=== PATIENT | male | born 1965 | race Caucasian/White ===

== ENCOUNTER 2017-06-23 08:07 | Day surgery (SDC) | payer OTHER ==
[~2017-06-23] VITALS: Ht 195.6 cm; Wt 141.5 kg
[~2017-06-23 08:07] MED LIST: ALBU90OI INH; AMLO5 PO; ASPI81CH PO; Advair Hfa 115-12 GM INH; CHLO25B PO; ESOM20 PO; FLUSAL1005 INH; LISHYD2025 PO; LISI20 PO; TRAM50 PO; [UNRECOGNIZED DRUG - OTHER]
[2017-09-11] MEDS ORDERED: ACET325 PO (15:19)
[2017-09-11] MEDS ORDERED: Amiodarone HCl200 MG PO (15:20)
[2017-09-11] MEDS ORDERED: ELIQUIS5 MG PO (15:21)
[2017-09-11] MEDS ORDERED: GERI-HYDROLAC222 M1 TP (15:21)
[2017-09-11] MEDS ORDERED: ASCO500 PO (15:22)
[2017-09-11] MEDS ORDERED: LISI20 PO (15:25)
[2017-09-11] MEDS ORDERED: FAMO20 PO (15:25)
[2017-09-11] MEDS ORDERED: Advair Hfa 230-12 GM (15:26)
[2017-09-11] MEDS ORDERED: LOPE2C PO (15:26)
[2017-09-11] MEDS ORDERED: METO100ER PO (15:27)
[2017-09-11] MEDS ORDERED: TRAZ50 PO (15:27)
[2017-09-12] MEDS ORDERED: Augmentin 875-1 EACH PO (14:58)
[2017-09-12] MEDS ORDERED: SACC250C PO (14:58)
[2018-02-03] MEDS ORDERED: ALBU90OI61 INH (17:52)
== END 2017-06-23 22:56 | disposition home or self-care (01) ==
LOC: ORSCMMR 08:07
PROVIDERS: Surgery
PROC: 0WUF0JZ Supplement Abdominal Wall with Synthetic Substitute, Open Approach (ICD-10-PCS; principal; 2017-06-23 09:45)
DX: K43.2 Incisional hernia without obstruction or gangrene (principal); I10 Essential (primary) hypertension; J45.909 Unspecified asthma, uncomplicated; K21.9 Gastro-esophageal reflux disease without esophagitis; E66.01 Morbid (severe) obesity due to excess calories; Z68.37 Body mass index [BMI] 37.0-37.9, adult; Z87.891 Personal history of nicotine dependence; Z79.899 Other long term (current) drug therapy
CPT/HCPCS: C1781; J0690; J1100; J1885; J2250; J2270; J2405; J2710; J3010; J7120

== ENCOUNTER 2017-06-28 22:59 | Inpatient (IN) | payer OTHER ==
[~2017-06-28] VITALS: Ht 193 cm; Wt 154.1 kg
[2017-06-28 23:49] LABS: BASOPHILS ABSOLUTE AUTO 0.03 K/mm3 (0.00-0.23); BASOPHILS PERCENT AUTO 0 % (0-2); Hemoglobin 12.8 g/dL (13.5-17.5); LYMPHOCYTES ABSOLUTE AUTO 0.87 K/mm3 (0.84-5.20); LYMPHOCYTES PERCENT AUTO 6 % (21-46); MONOCYTES ABSOLUTE AUTO 1.67 K/mm3 (0.16-1.47); MONOCYTES PERCENT AUTO 11 % (4-13); Mean Corpuscular HGB Conc 34.6 g/dL (31.5-36.5); Mean Corpuscular Volume 93 fL (80-100); Mean Platelet Volume 11.8 fL (9.1-12.4); Platelet Count 268 K/mm3 (150-400); RDW Coefficient Variation 12.5 % (11.7-14.2); RDW Standard Deviation 42.7 fL (35.1-46.3)
[2017-06-28 23:52] LABS: EOSINOPHILS PERCENT AUTO 0 % (0-6); IMMATURE GRAN ABSOLUTE AUTO 0.06 K/mm3 (0.00-0.10); IMMATURE GRAN PERCENT AUTO 0 % (0-1); NEUTROPHILS ABSOLUTE AUTO 12.17 K/mm3 (1.96-9.15); NEUTROPHILS PERCENT AUTO 82 % (41-73)
[2017-06-29 00:08] LABS: Albumin, Blood 3.1 g/dL (3.4-5.0); Albumin/Globulin Ratio 0.6 (0.8-1.8); Bun/Creatinine Ratio 12.7 (12.0-20.0); Calcium, Blood 8.9 mg/dL (8.5-10.1); Creatinine, Blood 4.72 mg/dL (0.60-1.20); Globulin, Blood 5.2 g/dL (2.2-4.0); Potassium, Blood 4.3 mmol/L (3.5-5.5); Total Protein, Blood 8.3 g/dL (6.4-8.2)
[2017-06-29] MEDS ORDERED: OXYC10TA19 (00:19)
[2017-06-29] MEDS ORDERED: CYCL10 PO (00:19)
[2017-06-29 03:29] LABS: Source, Urine Catheter
[2017-06-29 03:31] LABS: Appearance, Urine Hazy (Clear); Blood, Urine 2+ (Neg); Color, Urine Amber (P-Yellow); Glucose Qualitative, Urine Neg (Neg); Ketones, Urine 1+ (Neg); Leukocyte Esterase, Urine 1+ (Neg); Nitrite, Urine Neg (Neg); Protein, Urine 2+ (Neg); Urobilinogen, Urine 1+ (Normal)
[2017-06-29 03:36] LABS: Bilirubin, Urine 2+ (Neg)
[2017-06-29 03:37] LABS: Amorphous Mod (0-Heavy); Bacteria Many /hpf; Red Blood Cells, Urine 0-2 /hpf (0-2); Squamous Epithelial Cells Not Seen /hpf (Few)
[2017-06-29 04:56] LABS: BASOPHILS ABSOLUTE AUTO 0.02 K/mm3 (0.00-0.23); BASOPHILS PERCENT AUTO 0 % (0-2); Hematocrit 28.5 % (37.0-53.0); Hemoglobin 9.6 g/dL (13.5-17.5); LYMPHOCYTES ABSOLUTE AUTO 0.83 K/mm3 (0.84-5.20); LYMPHOCYTES PERCENT AUTO 7 % (21-46); MONOCYTES ABSOLUTE AUTO 2.25 K/mm3 (0.16-1.47); MONOCYTES PERCENT AUTO 18 % (4-13); Mean Corpuscular HGB 31.6 pg (26.0-34.0); Mean Corpuscular HGB Conc 33.7 g/dL (31.5-36.5); Mean Corpuscular Volume 94 fL (80-100); Platelet Count 223 K/mm3 (150-400); RDW Coefficient Variation 12.6 % (11.7-14.2); RDW Standard Deviation 43.6 fL (35.1-46.3); Red Blood Cell Count 3.04 M/mm3 (4.30-5.90); White Blood Cell Count 12.53 K/mm3 (4.00-11.30)
[2017-06-29 04:59] LABS: EOSINOPHILS PERCENT AUTO 0 % (0-6); IMMATURE GRAN ABSOLUTE AUTO 0.08 K/mm3 (0.00-0.10); IMMATURE GRAN PERCENT AUTO 1 % (0-1); NEUTROPHILS ABSOLUTE AUTO 9.35 K/mm3 (1.96-9.15); NEUTROPHILS PERCENT AUTO 75 % (41-73)
[2017-06-29 05:09] LABS: Albumin, Blood 2.4 g/dL (3.4-5.0); Albumin/Globulin Ratio 0.6 (0.8-1.8); Bilirubin, Total 1.6 mg/dL (0.1-1.0); Bun/Creatinine Ratio 12.8 (12.0-20.0); Calcium, Blood 7.5 mg/dL (8.5-10.1); Creatinine, Blood 4.94 mg/dL (0.60-1.20); Potassium, Blood 3.7 mmol/L (3.5-5.5); Total Protein, Blood 6.4 g/dL (6.4-8.2)
[2017-06-29 10:16] LABS: PCO2 Arterial 50.7 mmHg (35-45); PO2 Arterial 237 mmHg (80-100); pH Blood Arterial 7.29 (7.35-7.45)
[2017-06-29 12:32] LABS: PO2 Arterial 67.6 mmHg (80-100)
[2017-06-29 12:33] LABS: pH Blood Arterial 7.29 (7.35-7.45)
[2017-06-29 13:40] LABS: BASOPHILS ABSOLUTE AUTO 0.02 K/mm3 (0.00-0.23); BASOPHILS PERCENT AUTO 0 % (0-2); Hematocrit 32.3 % (37.0-53.0); Hemoglobin 10.8 g/dL (13.5-17.5); LYMPHOCYTES ABSOLUTE AUTO 0.59 K/mm3 (0.84-5.20); LYMPHOCYTES PERCENT AUTO 10 % (21-46); MONOCYTES ABSOLUTE AUTO 0.96 K/mm3 (0.16-1.47); MONOCYTES PERCENT AUTO 17 % (4-13); Mean Corpuscular HGB 31.2 pg (26.0-34.0); Mean Corpuscular HGB Conc 33.4 g/dL (31.5-36.5); Mean Corpuscular Volume 93 fL (80-100); Mean Platelet Volume 11.4 fL (9.1-12.4); Platelet Count 223 K/mm3 (150-400); RDW Coefficient Variation 13.2 % (11.7-14.2); RDW Standard Deviation 45.1 fL (35.1-46.3); Red Blood Cell Count 3.46 M/mm3 (4.30-5.90)
[2017-06-29 13:41] LABS: EOSINOPHILS PERCENT AUTO 0 % (0-6); IMMATURE GRAN ABSOLUTE AUTO 0.02 K/mm3 (0.00-0.10); IMMATURE GRAN PERCENT AUTO 0 % (0-1); NEUTROPHILS ABSOLUTE AUTO 4.21 K/mm3 (1.96-9.15); NEUTROPHILS PERCENT AUTO 73 % (41-73)
[2017-06-29 13:55] LABS: International Normalized Ratio 1.13; Prothrombin Time Results 11.8 Sec (9.7-11.5)
[2017-06-29 14:02] LABS: Albumin/Globulin Ratio 0.5 (0.8-1.8); Bun/Creatinine Ratio 16.1 (12.0-20.0); Calcium, Blood 7.2 mg/dL (8.5-10.1); Creatinine, Blood 4.23 mg/dL (0.60-1.20); Globulin, Blood 3.7 g/dL (2.2-4.0); Magnesium, Blood 1.9 mg/dL (1.6-2.4); Phosphorus, Blood 5.5 mg/dL (2.5-4.9); Total Protein, Blood 5.7 g/dL (6.4-8.2)
[2017-06-29 20:19] LABS: Hematocrit 30.8 % (37.0-53.0); Hemoglobin 10.5 g/dL (13.5-17.5)
[2017-06-29 20:40] LABS: Magnesium, Blood 2.1 mg/dL (1.6-2.4); Phosphorus, Blood 3.6 mg/dL (2.5-4.9); Troponin I 0.092 ng/mL (0.000-0.040)
[2017-06-29 20:54] LABS: Creatine Kinase MB 3.7 ng/mL (0.0-3.6)
[2017-06-30 04:17] LABS: PCO2 Arterial 32.7 mmHg (35-45); PO2 Arterial 79.9 mmHg (80-100); pH Blood Arterial 7.46 (7.35-7.45)
[2017-06-30 04:18] LABS: BASOPHILS ABSOLUTE AUTO 0.02 K/mm3 (0.00-0.23); BASOPHILS PERCENT AUTO 0 % (0-2); EOSINOPHILS ABSOLUTE AUTO 0.04 K/mm3 (0.00-0.68); EOSINOPHILS PERCENT AUTO 1 % (0-6); Hematocrit 29.2 % (37.0-53.0); Hemoglobin 10.1 g/dL (13.5-17.5); IMMATURE GRAN ABSOLUTE AUTO 0.05 K/mm3 (0.00-0.10); IMMATURE GRAN PERCENT AUTO 1 % (0-1); LYMPHOCYTES ABSOLUTE AUTO 0.73 K/mm3 (0.84-5.20); LYMPHOCYTES PERCENT AUTO 11 % (21-46); MONOCYTES PERCENT AUTO 24 % (4-13); Mean Corpuscular HGB 31.6 pg (26.0-34.0); Mean Corpuscular HGB Conc 34.6 g/dL (31.5-36.5); Mean Corpuscular Volume 91 fL (80-100); Mean Platelet Volume 11.3 fL (9.1-12.4); NEUTROPHILS ABSOLUTE AUTO 4.28 K/mm3 (1.96-9.15); NEUTROPHILS PERCENT AUTO 64 % (41-73); NRBC ABSOLUTE 0.02 K/mm3 (0.00-0.02); NRBC Auto 0.3 /100 WBC (0.0-0.2); Platelet Count 236 K/mm3 (150-400); RDW Coefficient Variation 13.3 % (11.7-14.2); RDW Standard Deviation 44.9 fL (35.1-46.3); White Blood Cell Count 6.72 K/mm3 (4.00-11.30)
[2017-06-30 04:41] LABS: Bun/Creatinine Ratio 22.1 (12.0-20.0); Calcium, Blood 7.7 mg/dL (8.5-10.1); Creatinine, Blood 2.99 mg/dL (0.60-1.20); Free Thyroxine 1.24 ng/dL (0.70-1.60); Magnesium, Blood 2.4 mg/dL (1.6-2.4); Phosphorus, Blood 2.8 mg/dL (2.5-4.9); Potassium, Blood 3.5 mmol/L (3.5-5.5); Troponin I 0.077 ng/mL (0.000-0.040)
[2017-06-30 04:44] LABS: Thyroid Stimulating Hormone 0.27 uIU/mL (0.360-4.800)
[2017-07-01 04:33] LABS: Hematocrit 26.1 % (37.0-53.0); Mean Corpuscular HGB 31.7 pg (26.0-34.0); Mean Corpuscular HGB Conc 34.5 g/dL (31.5-36.5); Mean Corpuscular Volume 92 fL (80-100); Mean Platelet Volume 11.2 fL (9.1-12.4); Platelet Count 259 K/mm3 (150-400); RDW Coefficient Variation 13.3 % (11.7-14.2); Red Blood Cell Count 2.84 M/mm3 (4.30-5.90); White Blood Cell Count 9.47 K/mm3 (4.00-11.30)
[2017-07-01 04:46] LABS: International Normalized Ratio 1.08; Prothrombin Time Results 11.3 Sec (9.7-11.5)
[2017-07-01 04:53] LABS: Alanine Aminotransfer (ALT/SGP 37 U/L (12-78); Albumin, Blood 1.5 g/dL (3.4-5.0); Albumin/Globulin Ratio 0.4 (0.8-1.8); Alk Phos 33 U/L (50-136); Anion Gap 8 mmol/L (6-16); Aspartate Aminotrans (AST/SGOT 39 U/L (12-37); Bilirubin, Total 1.2 mg/dL (0.1-1.0); Blood Urea Nitrogen 52 mg/dL (8-24); Bun/Creatinine Ratio 32.3 (12.0-20.0); CO2, Blood 26 mmol/L (21-32); Calcium, Blood 7.2 mg/dL (8.5-10.1); Chloride, Blood 101 mmol/L (98-108); Creatinine, Blood 1.61 mg/dL (0.60-1.20); Globulin, Blood 3.9 g/dL (2.2-4.0); Glomerular Filtration Rate 48 (60-); Glucose, Blood 148 mg/dL (70-99); Magnesium, Blood 2.6 mg/dL (1.6-2.4); Phosphorus, Blood 1.8 mg/dL (2.5-4.9); Potassium, Blood 3.1 mmol/L (3.5-5.5); Sodium, Blood 135 mmol/L (136-145); Total Protein, Blood 5.4 g/dL (6.4-8.2); Triglycerides 784 mg/dL (30-160)
[2017-07-01 05:11] LABS: PCO2 Arterial 34.7 mmHg (35-45); PO2 Arterial 74.1 mmHg (80-100)
[2017-07-01 05:50] LABS: BAND PERCENT MAN 11 % (0-8); BASOPHILS PERCENT MAN 0 % (0-2); EOSINOPHILS ABSOLUTE MAN 0.47 K/mm3 (0.00-0.68); EOSINOPHILS PERCENT MAN 5 % (0-6); LYMPHOCYTES ABSOLUTE MAN 0.66 K/mm3 (0.84-5.20); LYMPHOCYTES PERCENT MAN 7 % (21-46); METAMYELOCYTE ABSOLUTE MAN 0.37 K/mm3 (0.00-0.00); METAMYELOCYTE PERCENT MAN 4 % (0-0); MONOCYTES ABSOLUTE MAN 0.94 K/mm3 (0.16-1.47); MONOCYTES PERCENT MAN 10 % (4-13); MYELOCYTE ABSOLUTE MAN 0.09 K/mm3 (0.00-0.00); MYELOCYTE PERCENT MAN 1 % (0-0); NEUTROPHILS ABSOLUTE MAN 6.91 K/mm3 (1.96-9.15); SEG NEUTROPHILS PERCENT MAN 62 % (41-73); TOTAL CELLS COUNTED 100
[2017-07-02 03:41] LABS: Hematocrit 26.1 % (37.0-53.0); Hemoglobin 8.9 g/dL (13.5-17.5); Mean Corpuscular HGB 31.1 pg (26.0-34.0); Mean Corpuscular HGB Conc 34.1 g/dL (31.5-36.5); Mean Corpuscular Volume 91 fL (80-100); Mean Platelet Volume 10.3 fL (9.1-12.4); Platelet Count 324 K/mm3 (150-400); RDW Coefficient Variation 13.2 % (11.7-14.2); RDW Standard Deviation 44.2 fL (35.1-46.3); Red Blood Cell Count 2.86 M/mm3 (4.30-5.90); White Blood Cell Count 13.86 K/mm3 (4.00-11.30)
[2017-07-02 03:58] LABS: Magnesium, Blood 2.5 mg/dL (1.6-2.4)
[2017-07-02 03:59] LABS: Albumin, Blood 1.7 g/dL (3.4-5.0); Anion Gap 7 mmol/L (6-16); Blood Urea Nitrogen 41 mg/dL (8-24); Bun/Creatinine Ratio 33.6 (12.0-20.0); CO2, Blood 28 mmol/L (21-32); Calcium, Blood 7.2 mg/dL (8.5-10.1); Chloride, Blood 102 mmol/L (98-108); Creatinine, Blood 1.22 mg/dL (0.60-1.20); Glomerular Filtration Rate >60 (60-); Glucose, Blood 129 mg/dL (70-99); Potassium, Blood 3.2 mmol/L (3.5-5.5); Sodium, Blood 137 mmol/L (136-145)
[2017-07-02 04:12] LABS: BAND PERCENT MAN 11 % (0-8); BASOPHILS PERCENT MAN 0 % (0-2); EOSINOPHILS ABSOLUTE MAN 0.27 K/mm3 (0.00-0.68); EOSINOPHILS PERCENT MAN 2 % (0-6); LYMPHOCYTES ABSOLUTE MAN 0.55 K/mm3 (0.84-5.20); LYMPHOCYTES PERCENT MAN 4 % (21-46); METAMYELOCYTE ABSOLUTE MAN 0.13 K/mm3 (0.00-0.00); METAMYELOCYTE PERCENT MAN 1 % (0-0); MONOCYTES ABSOLUTE MAN 0.55 K/mm3 (0.16-1.47); MONOCYTES PERCENT MAN 4 % (4-13); MYELOCYTE ABSOLUTE MAN 0.41 K/mm3 (0.00-0.00); MYELOCYTE PERCENT MAN 3 % (0-0); NEUTROPHILS ABSOLUTE MAN 11.91 K/mm3 (1.96-9.15); SEG NEUTROPHILS PERCENT MAN 75 % (41-73); TOTAL CELLS COUNTED 100
[2017-09-11] MEDS ORDERED: ACET325 PO (15:19)
[2017-09-11] MEDS ORDERED: Amiodarone HCl200 MG PO (15:20)
[2017-09-11] MEDS ORDERED: ELIQUIS5 MG PO (15:21)
[2017-09-11] MEDS ORDERED: GERI-HYDROLAC222 M1 TP (15:21)
[2017-09-11] MEDS ORDERED: ASCO500 PO (15:22)
[2017-09-11] MEDS ORDERED: FAMO20 PO (15:25)
[2017-09-11] MEDS ORDERED: LISI20 PO (15:25)
[2017-09-11] MEDS ORDERED: LOPE2C PO (15:26)
[2017-09-11] MEDS ORDERED: Advair Hfa 230-12 GM (15:26)
[2017-09-11] MEDS ORDERED: TRAZ50 PO (15:27)
[2017-09-11] MEDS ORDERED: METO100ER PO (15:27)
[2017-09-12] MEDS ORDERED: SACC250C PO (14:58)
[2017-09-12] MEDS ORDERED: Augmentin 875-1 EACH PO (14:58)
[2018-02-03] MEDS ORDERED: ALBU90OI61 INH (17:52)
== END 2017-07-02 20:05 | disposition short-term general hospital (02) | DRG 856 ==
LOC: ER 22:59 → ICUW 06-29 01:32 → EDBEDREQ 06-29 02:28 → ICUW 07-02 20:05
PROVIDERS: Anesthesiology; Emergency Medicine; Internal Medicine Critical Care Medicine; Surgery
PROC: 02HV33Z Insertion of Infusion Device into Superior Vena Cava, Percutaneous Approach (ICD-10-PCS; principal; 2017-06-29 08:45)
PROC: 0WPG0JZ Removal of Synthetic Substitute from Peritoneal Cavity, Open Approach (ICD-10-PCS; principal; 2017-06-29 08:45)
PROC: 0DBL0ZX Excision of Transverse Colon, Open Approach, Diagnostic (ICD-10-PCS; principal; 2017-06-29 08:45)
PROC: 5A1945Z Respiratory Ventilation, 24-96 Consecutive Hours (ICD-10-PCS; principal; 2017-06-29 08:45)
PROC: 0BH17EZ Insertion of Endotracheal Airway into Trachea, Via Natural or Artificial Opening (ICD-10-PCS; principal; 2017-06-29 08:45)
PROC: 3E033XZ Introduction of Vasopressor into Peripheral Vein, Percutaneous Approach (ICD-10-PCS; principal; 2017-06-29 08:45)
PROC: 30233N1 Transfusion of Nonautologous Red Blood Cells into Peripheral Vein, Percutaneous Approach (ICD-10-PCS; principal; 2017-06-29 08:45)
PROC: 0WJH0ZZ Inspection of Retroperitoneum, Open Approach (ICD-10-PCS; 2017-07-02)
DX: T81.4XXA Infection following a procedure, initial encounter (principal); J95.821 Acute postprocedural respiratory failure; K63.1 Perforation of intestine (nontraumatic); R65.21 Severe sepsis with septic shock; N17.9 Acute kidney failure, unspecified; E87.2 Acidosis; K65.2 Spontaneous bacterial peritonitis; I48.91 Unspecified atrial fibrillation; I10 Essential (primary) hypertension; Z87.891 Personal history of nicotine dependence; G47.33 Obstructive sleep apnea (adult) (pediatric); D64.9 Anemia, unspecified
CPT/HCPCS: 31720; 36415; 36430; 36569; 51702; 71045; 74176; 80048; 80053; 80069; 81001; 82330; 82533; 82550; 82553; 82803; 82947; 83605; 83690; 83735; 84100; 84439; 84443; 84478; 84484; 85014; 85018; 85025; 85610; 85730; 86850; 86900; 86901; 86923; 87040; 87070; 87076; 87086; 87185; 87205; 88307; 93005; 93010; 93971; 94002; 94003; 94640; 96361; 96365; 96375; 96376; 99285; C1751; C9113; J0282; J0330; J0610; J1100; J1160; J1650; J1885; J2060; J2185; J2370; J2405; J2543; J2550; J3010; J3411; J7030; J7040; J7060; J7120; P9016; P9041

== ENCOUNTER 2017-08-04 00:19 | Day surgery (SDC) | payer OTHER ==
[~2017-08-04 00:19] MED LIST changes: +CYCL10 PO; +OXYC10TA19
[2017-09-11] MEDS ORDERED: ACET325 PO (15:19)
[2017-09-11] MEDS ORDERED: Amiodarone HCl200 MG PO (15:20)
[2017-09-11] MEDS ORDERED: ELIQUIS5 MG PO (15:21)
[2017-09-11] MEDS ORDERED: GERI-HYDROLAC222 M1 TP (15:21)
[2017-09-11] MEDS ORDERED: ASCO500 PO (15:22)
[2017-09-11] MEDS ORDERED: FAMO20 PO (15:25)
[2017-09-11] MEDS ORDERED: LISI20 PO (15:25)
[2017-09-11] MEDS ORDERED: Advair Hfa 230-12 GM (15:26)
[2017-09-11] MEDS ORDERED: LOPE2C PO (15:26)
[2017-09-11] MEDS ORDERED: METO100ER PO (15:27)
[2017-09-11] MEDS ORDERED: TRAZ50 PO (15:27)
[2017-09-12] MEDS ORDERED: Augmentin 875-1 EACH PO (14:58)
[2017-09-12] MEDS ORDERED: SACC250C PO (14:58)
[2018-02-03] MEDS ORDERED: ALBU90OI61 INH (17:52)
== END 2017-08-04 12:22 | disposition home or self-care (01) ==
LOC: WOUND 00:19
DX: Z48.01 Encounter for change or removal of surgical wound dressing (principal); T81.31XD Disruption of external operation (surgical) wound, not elsewhere classified, subsequent encounter; E11.9 Type 2 diabetes mellitus without complications; I10 Essential (primary) hypertension; J45.909 Unspecified asthma, uncomplicated; I48.91 Unspecified atrial fibrillation; E66.01 Morbid (severe) obesity due to excess calories; Z68.41 Body mass index [BMI] 40.0-44.9, adult; Z90.49 Acquired absence of other specified parts of digestive tract
CPT/HCPCS: 87070; 87075; 87076; 87077; 87147; 87185; 87186; 87205; G0463

== ENCOUNTER 2017-08-05 01:45 | Day surgery (SDC) | payer OTHER | END 2017-08-05 14:47 | disposition home or self-care (01) | LOC: WOUND 01:45 | DX: Z48.01 Encounter for change or removal of surgical wound dressing (principal); S31.105A Unspecified open wound of abdominal wall, periumbilic region without penetration into peritoneal cavity, initial encounter; I10 Essential (primary) hypertension; G47.33 Obstructive sleep apnea (adult) (pediatric); J45.909 Unspecified asthma, uncomplicated | CPT/HCPCS: G0463 ==

== ENCOUNTER 2017-08-06 00:52 | Day surgery (SDC) | payer OTHER | END 2017-08-06 22:52 | disposition home or self-care (01) | LOC: WOUND 00:52 | DX: Z48.01 Encounter for change or removal of surgical wound dressing (principal); S31.105A Unspecified open wound of abdominal wall, periumbilic region without penetration into peritoneal cavity, initial encounter; T81.31XA Disruption of external operation (surgical) wound, not elsewhere classified, initial encounter; I10 Essential (primary) hypertension; J45.909 Unspecified asthma, uncomplicated; E11.9 Type 2 diabetes mellitus without complications; E66.01 Morbid (severe) obesity due to excess calories | CPT/HCPCS: G0463 ==

== ENCOUNTER 2017-08-11 14:30 | Day surgery (SDC) | payer OTHER | END 2017-08-11 22:45 | disposition home or self-care (01) | LOC: WOUND 14:30 | DX: T81.31XA Disruption of external operation (surgical) wound, not elsewhere classified, initial encounter (principal); S31.105A Unspecified open wound of abdominal wall, periumbilic region without penetration into peritoneal cavity, initial encounter; I10 Essential (primary) hypertension; G47.33 Obstructive sleep apnea (adult) (pediatric); J45.909 Unspecified asthma, uncomplicated; E11.9 Type 2 diabetes mellitus without complications | CPT/HCPCS: G0463 ==

== ENCOUNTER 2017-08-18 14:13 | Day surgery (SDC) | payer OTHER | END 2017-08-18 22:45 | disposition home or self-care (01) | LOC: WOUND 14:13 | DX: Z48.00 Encounter for change or removal of nonsurgical wound dressing (principal); S31.105A Unspecified open wound of abdominal wall, periumbilic region without penetration into peritoneal cavity, initial encounter; T81.31XA Disruption of external operation (surgical) wound, not elsewhere classified, initial encounter; I10 Essential (primary) hypertension; G47.33 Obstructive sleep apnea (adult) (pediatric); J45.909 Unspecified asthma, uncomplicated; E11.9 Type 2 diabetes mellitus without complications | CPT/HCPCS: G0463 ==

== ENCOUNTER 2017-08-25 00:37 | Day surgery (SDC) | payer OTHER | END 2017-08-25 22:52 | disposition home or self-care (01) | LOC: WOUND 00:37 | DX: Z48.01 Encounter for change or removal of surgical wound dressing (principal); T81.31XA Disruption of external operation (surgical) wound, not elsewhere classified, initial encounter; S31.105A Unspecified open wound of abdominal wall, periumbilic region without penetration into peritoneal cavity, initial encounter; I10 Essential (primary) hypertension; J45.909 Unspecified asthma, uncomplicated; E11.9 Type 2 diabetes mellitus without complications | CPT/HCPCS: G0463 ==

== ENCOUNTER 2017-09-08 01:00 | Day surgery (SDC) | payer OTHER ==
[2017-09-11] MEDS ORDERED: ACET325 PO (15:19)
[2017-09-11] MEDS ORDERED: Amiodarone HCl200 MG PO (15:20)
[2017-09-11] MEDS ORDERED: ELIQUIS5 MG PO (15:21)
[2017-09-11] MEDS ORDERED: GERI-HYDROLAC222 M1 TP (15:21)
[2017-09-11] MEDS ORDERED: ASCO500 PO (15:22)
[2017-09-11] MEDS ORDERED: FAMO20 PO (15:25)
[2017-09-11] MEDS ORDERED: LISI20 PO (15:25)
[2017-09-11] MEDS ORDERED: LOPE2C PO (15:26)
[2017-09-11] MEDS ORDERED: Advair Hfa 230-12 GM (15:26)
[2017-09-11] MEDS ORDERED: TRAZ50 PO (15:27)
[2017-09-11] MEDS ORDERED: METO100ER PO (15:27)
== END 2017-09-08 15:13 | disposition home or self-care (01) ==
LOC: WOUND 01:00
DX: Z48.01 Encounter for change or removal of surgical wound dressing (principal); T81.31XA Disruption of external operation (surgical) wound, not elsewhere classified, initial encounter; S31.105A Unspecified open wound of abdominal wall, periumbilic region without penetration into peritoneal cavity, initial encounter; I10 Essential (primary) hypertension; G47.33 Obstructive sleep apnea (adult) (pediatric); J45.909 Unspecified asthma, uncomplicated; E11.9 Type 2 diabetes mellitus without complications
CPT/HCPCS: G0463

== ENCOUNTER 2017-09-15 14:00 | Day surgery (SDC) | payer OTHER ==
[~2017-09-15 14:00] MED LIST changes: +ACET325 PO; +ASCO500 PO; +Advair Hfa 230-12 GM; +Amiodarone HCl200 MG PO; +Augmentin 875-1 EACH PO; +ELIQUIS5 MG PO; +FAMO20 PO; +GERI-HYDROLAC222 M1 TP; +LOPE2C PO; +METO100ER PO; +SACC250C PO; +TRAZ50 PO
== END 2017-09-15 22:46 | disposition home or self-care (01) ==
LOC: WOUND 14:00
DX: Z48.01 Encounter for change or removal of surgical wound dressing (principal); S31.105A Unspecified open wound of abdominal wall, periumbilic region without penetration into peritoneal cavity, initial encounter; T81.31XA Disruption of external operation (surgical) wound, not elsewhere classified, initial encounter; I10 Essential (primary) hypertension; G47.33 Obstructive sleep apnea (adult) (pediatric); J45.909 Unspecified asthma, uncomplicated; E11.9 Type 2 diabetes mellitus without complications
CPT/HCPCS: G0463

== ENCOUNTER 2017-09-29 13:55 | Day surgery (SDC) | payer OTHER | END 2017-09-29 16:05 | disposition home or self-care (01) | LOC: WOUND 13:55 | DX: Z48.01 Encounter for change or removal of surgical wound dressing (principal); T81.31XA Disruption of external operation (surgical) wound, not elsewhere classified, initial encounter; S31.105A Unspecified open wound of abdominal wall, periumbilic region without penetration into peritoneal cavity, initial encounter; I10 Essential (primary) hypertension; G47.33 Obstructive sleep apnea (adult) (pediatric); J45.909 Unspecified asthma, uncomplicated; E11.9 Type 2 diabetes mellitus without complications | CPT/HCPCS: G0463 ==

== ENCOUNTER 2017-10-06 13:53 | Day surgery (SDC) | END 2017-10-06 15:54 | disposition home or self-care (01) ==

== ENCOUNTER 2017-10-08 11:30 | Day surgery (SDC) | payer OTHER | END 2017-10-08 12:28 | disposition home or self-care (01) | LOC: WOUND 11:30 | DX: Z48.01 Encounter for change or removal of surgical wound dressing (principal); T81.31XA Disruption of external operation (surgical) wound, not elsewhere classified, initial encounter; S31.105A Unspecified open wound of abdominal wall, periumbilic region without penetration into peritoneal cavity, initial encounter; I10 Essential (primary) hypertension; G47.33 Obstructive sleep apnea (adult) (pediatric); E11.9 Type 2 diabetes mellitus without complications | CPT/HCPCS: G0463 ==

== ENCOUNTER 2017-10-22 14:00 | Day surgery (SDC) | payer OTHER | END 2017-10-22 15:48 | disposition home or self-care (01) | LOC: WOUND 14:00 | DX: Z48.01 Encounter for change or removal of surgical wound dressing (principal); S31.105A Unspecified open wound of abdominal wall, periumbilic region without penetration into peritoneal cavity, initial encounter; T81.31XA Disruption of external operation (surgical) wound, not elsewhere classified, initial encounter; I10 Essential (primary) hypertension; G47.33 Obstructive sleep apnea (adult) (pediatric); E11.9 Type 2 diabetes mellitus without complications | CPT/HCPCS: G0463 ==

== ENCOUNTER 2017-11-04 10:00 | Day surgery (SDC) | payer OTHER | END 2017-11-04 12:31 | disposition home or self-care (01) | LOC: WOUND 10:00 | DX: Z48.01 Encounter for change or removal of surgical wound dressing (principal); T81.31XA Disruption of external operation (surgical) wound, not elsewhere classified, initial encounter; S31.105A Unspecified open wound of abdominal wall, periumbilic region without penetration into peritoneal cavity, initial encounter; I10 Essential (primary) hypertension; G47.33 Obstructive sleep apnea (adult) (pediatric); E11.9 Type 2 diabetes mellitus without complications; J45.909 Unspecified asthma, uncomplicated | CPT/HCPCS: G0463 ==

== ENCOUNTER 2017-12-22 00:44 | Day surgery (SDC) | payer OTHER | END 2017-12-22 14:57 | disposition home or self-care (01) | LOC: ATC 00:44 | DX: T81.31XA Disruption of external operation (surgical) wound, not elsewhere classified, initial encounter (principal); S31.105A Unspecified open wound of abdominal wall, periumbilic region without penetration into peritoneal cavity, initial encounter; I10 Essential (primary) hypertension; G47.33 Obstructive sleep apnea (adult) (pediatric); J45.909 Unspecified asthma, uncomplicated; E11.9 Type 2 diabetes mellitus without complications | CPT/HCPCS: 99212 ==

== ENCOUNTER 2017-12-30 00:19 | Day surgery (SDC) | payer OTHER | END 2017-12-30 22:36 | disposition home or self-care (01) | LOC: ATC 00:19 | DX: T81.31XA Disruption of external operation (surgical) wound, not elsewhere classified, initial encounter (principal); S31.105A Unspecified open wound of abdominal wall, periumbilic region without penetration into peritoneal cavity, initial encounter; I10 Essential (primary) hypertension; G47.33 Obstructive sleep apnea (adult) (pediatric); J45.909 Unspecified asthma, uncomplicated; E11.9 Type 2 diabetes mellitus without complications | CPT/HCPCS: 99214 ==

== ENCOUNTER 2018-01-04 08:19 | Day surgery (SDC) | payer OTHER | END 2018-01-04 22:40 | disposition home or self-care (01) | LOC: ATC 08:19 | DX: Z48.01 Encounter for change or removal of surgical wound dressing (principal); T81.89XA Other complications of procedures, not elsewhere classified, initial encounter; I10 Essential (primary) hypertension; G47.33 Obstructive sleep apnea (adult) (pediatric); J45.909 Unspecified asthma, uncomplicated; E11.9 Type 2 diabetes mellitus without complications ==

== ENCOUNTER 2018-05-27 16:35 | Emergency (ER) | payer OTHER ==
[~2018-05-27] VITALS: Ht 195.6 cm; Wt 127.0 kg
[~2018-05-27 16:35] MED LIST changes: +ALBU90OI61 INH
== END 2018-05-27 17:43 | disposition home or self-care (01) ==
LOC: ER 16:35
DX: K91.89 Other postprocedural complications and disorders of digestive system (principal); Z79.899 Other long term (current) drug therapy; Z79.891 Long term (current) use of opiate analgesic; J45.909 Unspecified asthma, uncomplicated; I48.91 Unspecified atrial fibrillation; Z87.891 Personal history of nicotine dependence
CPT/HCPCS: 87070; 87075; 87076; 87077; 87185; 87186; 87205; 99282

== ENCOUNTER 2019-02-04 18:23 | Emergency (ER) | payer OTHER ==
[~2019-02-04] VITALS: Ht 195.6 cm; Wt 131.5 kg
[2019-02-04 19:52] LABS: BASOPHILS ABSOLUTE AUTO 0.04 K/mm3 (0.00-0.23); BASOPHILS PERCENT AUTO 0 % (0-2); EOSINOPHILS ABSOLUTE AUTO 0.07 K/mm3 (0.00-0.68); EOSINOPHILS PERCENT AUTO 1 % (0-6); Hematocrit 46.6 % (37.0-53.0); Hemoglobin 15.9 g/dL (13.5-17.5); IMMATURE GRAN ABSOLUTE AUTO 0.03 K/mm3 (0.00-0.10); IMMATURE GRAN PERCENT AUTO 0 % (0-1); LYMPHOCYTES PERCENT AUTO 23 % (21-46); MONOCYTES ABSOLUTE AUTO 0.92 K/mm3 (0.16-1.47); MONOCYTES PERCENT AUTO 9 % (4-13); Mean Corpuscular HGB 31.4 pg (26.0-34.0); Mean Corpuscular HGB Conc 34.1 g/dL (31.5-36.5); Mean Corpuscular Volume 92 fL (80-100); Mean Platelet Volume 11.3 fL (9.1-12.4); NEUTROPHILS ABSOLUTE AUTO 6.57 K/mm3 (1.96-9.15); NEUTROPHILS PERCENT AUTO 66 % (41-73); Platelet Count 215 K/mm3 (150-400); RDW Coefficient Variation 12.8 % (11.7-14.2); RDW Standard Deviation 42.9 fL (35.1-46.3); Red Blood Cell Count 5.07 M/mm3 (4.30-5.90); White Blood Cell Count 9.93 K/mm3 (4.00-11.30)
[2019-02-04 20:18] LABS: Alanine Aminotransfer (ALT/SGP 32 U/L (12-78); Albumin, Blood 4.1 g/dL (3.4-5.0); Albumin/Globulin Ratio 1.1 (0.8-1.8); Alk Phos 85 U/L (50-136); Anion Gap 7 mmol/L (6-16); Aspartate Aminotrans (AST/SGOT 19 U/L (12-37); Bilirubin, Total 0.8 mg/dL (0.1-1.0); Blood Urea Nitrogen 15 mg/dL (8-24); Bun/Creatinine Ratio 10.4 (12.0-20.0); CO2, Blood 26 mmol/L (21-32); Calcium, Blood 8.8 mg/dL (8.5-10.1); Chloride, Blood 109 mmol/L (98-108); Creatinine, Blood 1.44 mg/dL (0.60-1.20); Globulin, Blood 3.6 g/dL (2.2-4.0); Glomerular Filtration Rate 54 (60-); Glucose, Blood 97 mg/dL (70-99); Potassium, Blood 3.6 mmol/L (3.5-5.5); Sodium, Blood 142 mmol/L (136-145); Total Protein, Blood 7.7 g/dL (6.4-8.2); Troponin I <0.015 ng/mL (0.000-0.040)
[2019-02-04] MEDS ORDERED: Amlodipine Besy10 MG PO (20:51)
[2019-02-04] MEDS ORDERED: POTCHL20ER PO (20:59)
[2019-02-04] MEDS ORDERED: FURO40 PO (21:00)
== END 2019-02-04 21:07 | disposition home or self-care (01) ==
LOC: ER 18:23
PROVIDERS: Physician Assistant
DX: I10 Essential (primary) hypertension (principal); Z87.891 Personal history of nicotine dependence; Z79.899 Other long term (current) drug therapy
CPT/HCPCS: 36415; 80053; 84484; 85025; 93005; 93010; 99283-25

== ENCOUNTER 2025-02-03 11:55 | Emergency (ER) | payer OTHER ==
[~2025-02-03] VITALS: Ht 195.6 cm; Wt 140.6 kg
[~2025-02-03 11:55] MED LIST changes: +Amlodipine Besy10 MG PO; +FURO40 PO; +POTCHL20ER PO
[2025-02-03 12:39] LABS: BASOPHILS ABSOLUTE AUTO 0.04 K/mm3 (0.00-0.23); BASOPHILS PERCENT AUTO 0 % (0-2); EOSINOPHILS ABSOLUTE AUTO 0.02 K/mm3 (0.00-0.68); EOSINOPHILS PERCENT AUTO 0 % (0-6); Hematocrit 49.6 % (37.0-53.0); Hemoglobin 17.3 g/dL (13.5-17.5); IMMATURE GRAN ABSOLUTE AUTO 0.05 K/mm3 (0.00-0.10); IMMATURE GRAN PERCENT AUTO 0 % (0-1); LYMPHOCYTES ABSOLUTE AUTO 2.54 K/mm3 (0.84-5.20); LYMPHOCYTES PERCENT AUTO 20 % (21-46); MONOCYTES ABSOLUTE AUTO 0.99 K/mm3 (0.16-1.47); MONOCYTES PERCENT AUTO 8 % (4-13); Mean Corpuscular HGB Conc 34.9 g/dL (31.5-36.5); Mean Corpuscular Volume 91 fL (80-100); NEUTROPHILS ABSOLUTE AUTO 8.94 K/mm3 (1.96-9.15); NEUTROPHILS PERCENT AUTO 71 % (41-73); NRBC ABSOLUTE 0.00 K/mm3 (0.00-0.02); NRBC Auto 0.0 /100 WBC (0.0-0.2); Platelet Count 211 K/mm3 (150-400); RDW Coefficient Variation 12.8 % (11.7-14.2); RDW Standard Deviation 42.2 fL (35.1-46.3)
[2025-02-03 13:02] LABS: Influenza A, PCR NEGATIVE (NEGATIVE); Influenza B, PCR NEGATIVE (NEGATIVE); Resp Syncytial Virus, PCR NEGATIVE (NEGATIVE); SARS-Cov-2 (COVID-19) PCR, MMC NEGATIVE (NEGATIVE)
[2025-02-03 13:15] LABS: Alanine Aminotransfer (ALT/SGP 49.0 U/L (12-78); Albumin, Blood 4.3 g/dL (3.4-5.0); Albumin/Globulin Ratio 1.3 (0.8-1.8); Anion Gap 10.0 mmol/L (3-11); Aspartate Aminotrans (AST/SGOT 36.0 U/L (12-37); Bilirubin, Total 1.4 mg/dL (0.1-1.0); Blood Urea Nitrogen 18.0 mg/dL (8-24); CO2, Blood 23.0 mmol/L (21-32); Calcium, Blood 9.5 mg/dL (8.5-10.1); Chloride, Blood 108.0 mmol/L (98-108); Creatinine, Blood 1.15 mg/dL (0.60-1.20); Globulin, Blood 3.2 g/dL (2.2-4.0); Glucose, Blood 120.0 mg/dL (70-99); Potassium, Blood 3.2 mmol/L (3.5-5.5); Sodium, Blood 138.0 mmol/L (136-145); Total Protein, Blood 7.5 g/dL (6.4-8.2)
[2025-02-03 16:50] LABS: Source, Urine Clean Catch
[2025-02-03 16:53] LABS: Bilirubin, Urine Neg (Neg); Color, Urine Yellow (P-Yellow); Glucose Qualitative, Urine Neg (Neg); Ketones, Urine 2+ (Neg); Leukocyte Esterase, Urine 1+ (Neg); Protein, Urine 2+ (Neg); Specific Gravity, Urine 1.010 (1.003-1.022); Urobilinogen, Urine NORM (Normal)
[2025-02-03 17:00] LABS: Red Blood Cells, Urine 0-2 /hpf (0-2)
[2025-02-03] MEDS ORDERED: NS 1,000 ML IV SCH (17:00)
[2025-02-03] MEDS ORDERED: PANTOPRAZOLE SO40 M2 PO (18:13)
[2025-02-03] MEDS ORDERED: OXYC5 PO (18:13)
[2025-02-03] MEDS ORDERED: CHLO25B PO (18:13)
[2025-02-03] MEDS ORDERED: AMILORIDE HCL5 M7 PO (18:13)
[2025-02-03 19:09] VITALS: BP 134/88
== END 2025-02-03 19:13 | disposition home or self-care (01) ==
LOC: ER 11:55
PROVIDERS: Student in an Organized Health Care Education/Training Program
DX: E87.6 Hypokalemia (principal); R53.1 Weakness; R55 Syncope and collapse; I10 Essential (primary) hypertension; Z87.891 Personal history of nicotine dependence; Z79.899 Other long term (current) drug therapy; Z79.51 Long term (current) use of inhaled steroids
CPT/HCPCS: 71046; 80053; 81001; 82947; 84484; 85025; 87086; 87637; 93005; 93010; 96360; 99285-25; A9270